=== PATIENT | male | born 2000 | race Caucasian/White ===

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

== ENCOUNTER 2021-04-18 10:28 | Emergency (ER) | payer OTHER, MEDICAID ==
[~2021-04-18] VITALS: Ht 172 cm; Wt 94.0 kg
[2021-04-18] MEDS ORDERED: NS IV 1000 ML 1,000 ML IV SCH (11:00)
[2021-04-18] MEDS ORDERED: APAP 325 MG/10.15 ML LIQ (TYLENOL) UDC PO ONE (11:00)
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
[2021-04-18 11:23] LABS: BASOPHILS % (AUTO) 0 % (0-10); EOSINOPHILS % (AUTO) 0 % (0-10); HEMATOCRIT 47 % (40-54); HEMOGLOBIN 16.2 g/dL (13.3-17.7); LYMPHOCYTES % (AUTO) 8 % (12-44); MEAN CORPUSCULAR HEMOGLOBIN 29 pg (25-34); MEAN CORPUSCULAR HGB CONC 34 g/dL (32-36); MEAN CORPUSCULAR VOLUME 85 fL (80-99); MEAN PLATELET VOLUME 9.6 fL (9.0-12.2); MONOCYTES # (AUTO) 1.2 10^3/uL (0.0-1.0); MONOCYTES % (AUTO) 10 % (0-12); NEUTROPHILS # (AUTO) 9.9 10^3/uL (1.8-7.8); NEUTROPHILS % (AUTO) 81 % (42-75); PLATELET COUNT 256 10^3/uL (130-400); WHITE BLOOD COUNT 12.2 10^3/uL (4.3-11.0)
[2021-04-18 12:17] LABS: POTASSIUM 3.6 MMOL/L (3.6-5.0)
[2021-04-18 12:18] LABS: CALCIUM 9.1 MG/DL (8.5-10.1)
[2021-04-18 12:22] LABS: CREATININE SERUM 1.3 MG/DL (0.60-1.30)
[2021-04-18 12:31] VITALS: BP 122/76
== END 2021-04-18 12:31 | disposition home or self-care (01) ==
LOC: EDUNIT# 10:28 → ER 10:29
DX: J09.X2 Influenza due to identified novel influenza A virus with other respiratory manifestations (principal); Z20.822 Contact with and (suspected) exposure to COVID-19
CPT/HCPCS: 36415; 80048; 85025; 87636

== ENCOUNTER 2021-10-09 23:02 | Emergency (ER) | payer OTHER, MEDICAID ==
[~2021-10-09] VITALS: Ht 175 cm; Wt 107.0 kg
[2021-10-09] MEDS ORDERED: RX-NAPROXEN (NAPROSYN) 250 MG TAB PPK#4 PO STA (23:55)
[2021-10-09] MEDS ORDERED: NAPR500T8 PO (23:59)
--- NOTE | 2021-10-09 23:59 | ED Lower Extremity ---
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 Source: patient History of Present Illness Date Seen by Provider: Oct 09, 2021 Time Seen by Provider: 23:28 Initial Comments PT ARRIVES VIA POV WITH GIRLFRIEND C/O LEFT ANKLE INJURY STATES AROUND [id number], HE WAS WALKING DOWN A HILL AND STEPPED IN A HOLE AND TWISTED HIS LEFT ANKLE AND CAME STRAIGHT HERE NO PARESTHESIAS OR MOTOR DEFICITS NO OTHER INJURIES FROM THE INCIDENT NO PRIOR INJURIES TO THIS FOOT/ANKLE/LEG HAS NOT TAKEN ANYTHING FOR SYMPTOMS PCP: NONE Allergies and Home Medications Allergies Coded Allergies: No Known Drug Allergies (Unverified , 08/12/10) Patient Home Medication List Home Medication List Reviewed: Yes Montelukast Sodium (Singulair) 5 Mg Tab.chew, 5 MG PO DAILY, (Reported) Entered as Reported by: SUSHMA HAWK on 08/12/10 1354 Naproxen (Naproxen) 500 Mg Tablet.dr, 500 MG PO BID Prescribed by: SAVANNAH SORENSEN on 10/09/21 4936 Review of Systems Constitutional: no symptoms reported Musculoskeletal: see HPI Skin: no symptoms reported Psychiatric/Neurological: No Symptoms Reported Past Wlnxrpf-Jvwufn-Tzexyt Hx Patient Social History Tobacco Use?: No Smoking Status: Never a Smoker Use of E-Cig and/or Vaping dev: Yes E-Cig or Vaping type used: Nicotine Use of E-Cig and/or Vaping Glenn: Current Everyday User Substance use?: No Alcohol Use?: No Pt feels they are or have been: No Immunizations Up To Date Influenza Vaccine Up-to-Date: No; Not Current Seasonal Allergies Seasonal Allergies: No Past Medical History Surgeries: No Respiratory: No Cardiac: No Neurological: No Genitourinary: No Gastrointestinal: No Musculoskeletal: No Endocrine: No HEENT: No Cancer: No Psychosocial: No Integumentary: No Blood Disorders: No Adverse Reaction/Blood Tranf: No Physical Exam Vital Signs Vital Signs - First Documented 10/09/21 23:25 Temp 36.6 Pulse 77 Resp 18 B/P (MAP) 141/74 (96) Capillary Refill : Height, Weight, BMI Height: 5'9.00" Weight: 195lbs. oz. 88.317500li; 34.00 BMI Method:Stated General Appearance: WD/WN, no apparent distress Hips: left hip normal inspection Legs: left leg normal inspection Knees: left knee normal inspection Ankles: left ankle bone tenderness, left ankle limited range of motion, left ankle pain, left ankle soft tissue tenderness, left ankle swelling (VERY MILD SWELLING AROUND LATERAL MALLEOLUS), left ankle other (NO ACHILLES OR HEEL TENDERNESS. NO ANTERIOR ANKLE TENDERNESS. PT HAS BILATERAL MALLEOLUS TENDERNESS. DISTAL MOTOR/SENSORY/VASCULAR INTACT. 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, no motor/sensory deficits, alert, normal mood/affect, oriented x 3 Skin: normal color, warm/dry Procedures/Interventions Splinting and Joint Reduction : Immobilizers: Step Light Walker s/m/lg Progress/Results/Core Measures Results/Orders My Orders Orders - SAVANNAH SORENSEN DO Ankle, Left, 3 Views (10/09/21 23:27) Steplite (10/09/21 23:55) Rx-Naproxen (Rx-Naprosyn) (10/09/21 23:55) Vital Signs/I&O 10/09/21 10/10/21 23:25 00:10 Temp 36.6 36.6 Pulse 77 74 Resp 18 18 B/P (MAP) 141/74 (96) 137/70 Blood Pressure Mean: 96 Diagnostic Imaging Comments XRAYS LEFT ANKLE--NO ACUTE PROCESS, PENDING RADIOLOGIST REVIEW Reviewed: Reviewed by Me Departure Impression Primary Impression: Left ankle sprain Disposition: 01 HOME, SELF-CARE Condition: Stable Departure-Patient Inst. Decision time for Depature: 23:55 Referrals: NO,LOCAL PHYSICIAN (PCP) Primary Care Physician ADRY COSBY MD Patient Instructions: Ankle Sprain, Walking Boot Add. Discharge Instructions: ICE TO AREA AT 20 MINUTE INTERVALS WEAR BOOT AT ALL TIMES ELEVATE FOOT MUCH POSSIBLE FOLLOW UP WITH DR. COSBY IN 1 WEEK FOR FURTHER CARE All discharge instructions reviewed with patient and/or family. Voiced understanding. Scripts Naproxen (Naproxen) 500 Mg Tablet. 500 MG PO BID, #20 TAB Prov: SAVANNAH SORENSEN DO 10/09/21 SAVANNAH SORENSEN DO Oct 09, 2021 23:59
[2021-10-10 00:10] VITALS: BP 137/70
--- NOTE | 2021-10-10 06:12 | Diagnostic Imaging Report ---
EXAMINATION: Left ankle 3 views HISTORY: ankle pain COMPARISON: None available. FINDINGS: There is no acute fracture, dislocation, or destructive osseous process. Joint spaces are normal. The soft tissues are normal. IMPRESSION: No acute osseous abnormality of the left ankle. Dictated by: Dictated on workstation # [id number]
== END 2021-10-10 00:10 | disposition home or self-care (01) ==
LOC: EDUNIT# 23:02 → ER 23:04
DX: S93.402A Sprain of unspecified ligament of left ankle, initial encounter (principal); F17.290 Nicotine dependence, other tobacco product, uncomplicated; W18.42XA Slipping, tripping and stumbling without falling due to stepping into hole or opening, initial encounter; X50.1XXA Overexertion from prolonged static or awkward postures, initial encounter; Y92.828 Other wilderness area as the place of occurrence of the external cause
CPT/HCPCS: 73610; 99283; L2114

== ENCOUNTER 2023-02-05 20:40 | Emergency (ER) | payer MEDICAID, OTHER ==
[~2023-02-05] VITALS: Ht 180.3 cm; Wt 109.0 kg
[~2023-02-05 20:40] MED LIST changes: +NAPR500T8 PO
[2023-02-05] MEDS ORDERED: NS IV 1000 ML 1,000 ML IV STA (21:02)
--- NOTE | 2023-02-05 21:05 | ED Abdominal Pain ---
General Chief Complaint: Abdominal/GI Problems Stated Complaint: NAUSEA/VOMITING Nursing Triage Note: PT AMB TO RM 08 WITH C/O VOMITTING X1 30 MIN AGO Source of Information: Patient Exam Limitations: No Limitations (MARIA DEL CARMEN BUTT) History of Present Illness Date Seen by Provider: Feb 05, 2023 Time Seen by Provider: 21:03 Initial Comments Patient is a 22-year-old male who presents ED for vomiting, feeling of like he is going to pass out. This occurred 1 hour ago. Patient states he was in a hotel. Vomited twice and since then has not felt well. States he feels fatigued weak. States he feels dehydrated. States he does not drink enough water. Does smoke daily. Denies of any specific pain. Denies runny nose, cough, headache, dizziness, visual changes, sore throat, chest pain, shortness of breath, diarrhea, bdominal pain, pain with urination frequent urination, skin color changes. Denies taking medication. patient is anxious. (MARIA DEL CARMEN BUTT) Allergies and Home Medications Allergies Coded Allergies: No Known Drug Allergies (Unverified , 08/12/10) Patient Home Medication List Home Medication List Reviewed: Yes (MARIA DEL CARMEN BUTT) Montelukast Sodium (Singulair) 5 Mg Tab.chew, 5 MG PO DAILY, (Reported) Entered as Reported by: SUSHMA HAWK on 08/12/10 1354 Naproxen (Naproxen) 500 Mg Tablet.dr, 500 MG PO BID Prescribed by: SAVANNAH SORENSEN on 10/09/21 4861 Review of Systems Review of Systems Constitutional: No chills, No diaphoresis EENTM: No Double Vision, No Eye Pain Respiratory: Denies Cough, Denies Orthopnea Cardiovascular: Denies Chest Pain Gastrointestinal: Denies Abdominal Pain, Denies Diarrhea; Nausea, Vomiting Genitourinary: Denies Burning, Denies Discharge Musculoskeletal: No back pain, No joint pain Skin: No change in hair/nails Endocrine: Denies See HPI, Denies Excessive Sweating (MARIA DEL CARMEN BUTT) All Other Systems Reviewed Negative Unless Noted: Yes (MARIA DEL CARMEN BUTT) Past Gduewqc-Akweqt-Lbnuuv Hx Patient Social History Tobacco Use?: No Use of E-Cig and/or Vaping dev: Yes E-Cig or Vaping type used: Nicotine Substance use?: No Alcohol Use?: No Pt feels they are or have been: No (MARIA DEL CARMEN BUTT) Seasonal Allergies Seasonal Allergies: No (MARIA DEL CARMEN BUTT) Past Medical History Surgery/Hospitalization HX: DENIES Surgeries: No Respiratory: No Cardiac: No Neurological: No Genitourinary: No Gastrointestinal: No Musculoskeletal: No Endocrine: No HEENT: No Cancer: No Psychosocial: No Integumentary: No Blood Disorders: No Adverse Reaction/Blood Tranf: No (MARIA DEL CARMEN BUTT) Physical Exam Vital Signs Vital Signs - First Documented 02/05/23 20:50 Temp 36.7 Pulse 87 Resp 14 B/P (MAP) 152/94 (113) Pulse Ox 97 O2 Delivery OxyMask (KIMBERLY RODRIGUEZ MD) Vital Signs Capillary Refill : (MARIA DEL CARMEN BUTT) Height/Weight/BMI Height: 5'9.00" Weight: 195lbs. oz. 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, no motor/sensory deficits, alert, normal mood/affect, oriented x 3 Skin: normal color, warm/dry (MARIA DEL CARMEN BUTT) Progress/Results/Core Measures Results/Orders Lab Results Laboratory Tests Test 02/05/23 21:05 Range/Units White Blood Count 14.5 H 4.3-11.0 10^3/uL Red Blood Count 5.77 H 4.30-5.52 10^6/uL Hemoglobin 16.3 13.3-17.7 g/dL Hematocrit 47 40-54 % Mean Corpuscular Volume 82 80-99 fL Mean Corpuscular Hemoglobin 28 25-34 pg Mean Corpuscular Hemoglobin Concent 35 32-36 g/dL Red Cell Distribution Width 12.4 10.0-14.5 % Platelet Count 348 130-400 10^3/uL Mean Platelet Volume 9.5 9.0-12.2 fL Immature Granulocyte % (Auto) 1 % Neutrophils (%) (Auto) 76 H 42-75 % Lymphocytes (%) (Auto) 18 12-44 % Monocytes (%) (Auto) 4 0-12 % Eosinophils (%) (Auto) 0 0-10 % Basophils (%) (Auto) 1 0-10 % Neutrophils # (Auto) 11.0 H 1.8-7.8 10^3/uL Lymphocytes # (Auto) 2.6 1.0-4.0 10^3/uL Monocytes # (Auto) 0.6 0.0-1.0 10^3/uL Eosinophils # (Auto) 0.1 0.0-0.3 10^3/uL Basophils # (Auto) 0.1 0.0-0.1 10^3/uL Immature Granulocyte # (Auto) 0.1 0.0-0.1 10^3/uL Neutrophils % (Manual) 77 % Lymphocytes % (Manual) 17 % Monocytes % (Manual) 6 % Platelet Estimate ADEQUATE Blood Morphology Comment NORMAL Sodium Level 137 135-145 MMOL/L Potassium Level 4.0 3.6-5.0 MMOL/L Chloride Level 105 98-107 MMOL/L Carbon Dioxide Level 21 21-32 MMOL/L Anion Gap 11 5-14 MMOL/L Blood Urea Nitrogen 12 7-18 MG/DL Creatinine 1.27 0.60-1.30 MG/DL Estimat Glomerular Filtration Rate 82 BUN/Creatinine Ratio 9 Glucose Level 108 H 70-105 MG/DL Calcium Level 9.6 8.5-10.1 MG/DL Corrected Calcium 9.2 8.5-10.1 MG/DL Total Bilirubin 0.4 0.1-1.0 MG/DL Aspartate Amino Transf (AST/SGOT) 20 5-34 U/L Alanine Aminotransferase (ALT/SGPT) 44 0-55 U/L Alkaline Phosphatase 59 40-136 U/L Total Protein 8.1 6.4-8.2 GM/DL Albumin 4.5 3.2-4.5 GM/DL (KIMBERLY RODRIGUEZ MD) Vital Signs/I&O 02/05/23 02/05/23 20:50 22:31 Temp 36.7 Pulse 87 88 Resp 14 14 B/P (MAP) 152/94 (113) 136/83 Pulse Ox 97 99 O2 Delivery OxyMask OxyMask (KIMBERLY RODRIGUEZ MD) Blood Pressure Mean: 113 Departure Communication (PCP) Reviewed previous ER visits, H&P, lab testing. Patient is a healthy 22-year-old male. Presents ED with vomiting 1 hour ago. Patient denies eating anything different. Patient denies of any specific pain at this time. States he feels fatigued weak and dehydrated. States he does feel sick and feels like he is going to pass out. No current chest pain abdominal pain. No active vomiting here. CBC, CMP and a liter of fluid was ordered here. CBC, CMP grossly unremarkable besides white blood count of 14. Chemistry grossly unremarkable. States his girlfriend tested for COVID and flu today but were negative. He refused swab. Patient did receive a liter of fluid. No vomiting during his stay. Patient does not appear toxic or septic. Vital signs were stable. Patient will be discharge with strict return precautions. Recommend oral hydration. Alternate Tylenol ibuprofen. If any worsening symptoms such as chest pain abdominal pain uncontrollable vomiting to return back to ED. (MARIA DEL CARMEN BUTT) Impression Primary Impression: Nausea and vomiting Disposition: 01 HOME, SELF-CARE Condition: Stable Departure-Patient Inst. Decision time for Depature: 22:08 (MARIA DEL CARMEN BUTT) Referrals: [facility],LOCAL PHYSICIAN (PCP) Primary Care Physician Patient Instructions: Nausea and Vomiting, Adult (DC) Add. Discharge Instructions: Recommend staying hydrated. Continue monitoring symptoms. Alternate Tylenol ibuprofen. If any worsening symptoms such as severe chest pain, abdominal pain to return back to ED. All discharge instructions reviewed with patient and/or family. Voiced understanding. ATTENDING PHYSICIAN NOTE: I was physically present as attending physician in the emergency department during the care of this patient, but I was not directly involved in the decision making or delivery of care for this patient. (KIMBERLY RODRIGUEZ MD) MARIA DEL CARMEN BUTT Feb 05, 2023 21:05 KIMBERLY RODRIGUEZ MD Feb 06, 2023 02:35
[2023-02-05 21:14] LABS: BASOPHILS # (AUTO) 0.1 10^3/uL (0.0-0.1); BASOPHILS % (AUTO) 1 % (0-10); EOSINOPHILS # (AUTO) 0.1 10^3/uL (0.0-0.3); EOSINOPHILS % (AUTO) 0 % (0-10); HEMATOCRIT 47 % (40-54); HEMOGLOBIN 16.3 g/dL (13.3-17.7); LYMPHOCYTES # (AUTO) 2.6 10^3/uL (1.0-4.0); LYMPHOCYTES % (AUTO) 18 % (12-44); MEAN CORPUSCULAR HEMOGLOBIN 28 pg (25-34); MEAN CORPUSCULAR HGB CONC 35 g/dL (32-36); MEAN CORPUSCULAR VOLUME 82 fL (80-99); MEAN PLATELET VOLUME 9.5 fL (9.0-12.2); MONOCYTES # (AUTO) 0.6 10^3/uL (0.0-1.0); MONOCYTES % (AUTO) 4 % (0-12); NEUTROPHILS % (AUTO) 76 % (42-75); PLATELET COUNT 348 10^3/uL (130-400); WHITE BLOOD COUNT 14.5 10^3/uL (4.3-11.0)
[2023-02-05 21:25] LABS: ALBUMIN 4.5 GM/DL (3.2-4.5)
[2023-02-05 21:27] LABS: CALCIUM 9.6 MG/DL (8.5-10.1)
[2023-02-05 21:28] LABS: TOTAL PROTEIN 8.1 GM/DL (6.4-8.2)
[2023-02-05 21:30] LABS: BILIRUBIN,TOTAL 0.4 MG/DL (0.1-1.0)
[2023-02-05 21:31] LABS: CREATININE SERUM 1.27 MG/DL (0.60-1.30)
[2023-02-05 21:50] LABS: LYMPHOCYTES % (MANUAL) 17 %; MONOCYTES % (MANUAL) 6 %; NEUTROPHILS % (MANUAL) 77 %; PLATELET ESTIMATE ADEQUATE
[2023-02-05 21:52] LABS: RBC MORPH NORMAL
[2023-02-05 22:31] VITALS: BP 136/83
== END 2023-02-05 22:31 | disposition home or self-care (01) ==
LOC: EDUNIT# 20:40 → ER 20:42
DX: R11.2 Nausea with vomiting, unspecified (principal); F17.290 Nicotine dependence, other tobacco product, uncomplicated
CPT/HCPCS: 36415; 80053; 85007; 85027